=== PATIENT | female | born 1990 | race African-American/Black ===

== ENCOUNTER 2019-06-04 13:00 | Outpatient (RCR) | payer OTHER, SELFPAY ==
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
--- NOTE | 2019-05-21 12:55 | PCPTNOTE ---
Patient called & cancelled scheduled appointment this date due to inability to make appointment.
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
== END 2019-06-04 16:11 | disposition home or self-care (01) ==
LOC: ANHPT 13:00
PROVIDERS: Visit Provider Obstetrics & Gynecology Gynecology
DX: O26.893 Other specified pregnancy related conditions, third trimester (principal); M25.551 Pain in right hip; Z3A.32 32 weeks gestation of pregnancy; Z3A.34 34 weeks gestation of pregnancy
CPT/HCPCS: 97110; 97140; 97161

== ENCOUNTER 2019-06-12 18:42 | Observation (INO) | payer OTHER, SELFPAY ==
[2019-06-12 18:57] VITALS: BMI 32.1
[2019-06-12] MEDS: FLUCONAZOLE 100 MG TABLET PO (20:37)
--- NOTE | 2019-06-17 10:21 | PM.OBTRLD ---
OB - Triage/Final Diagnosis Visit Information Date of evaluation: 06/12/19 Reason for evaluation: other Comments/Additional reasons for admission: ruled out rupture of membranes Yeast infection Final Diagnosis (1) SROM (spontaneous rupture of membranes): Status: Acute
== END 2019-06-12 20:40 | disposition home or self-care (01) ==
PROVIDERS: Admitting Provider Obstetrics & Gynecology; PCP Family Medicine; Visit Provider Obstetrics & Gynecology
DX: O98.813 Other maternal infectious and parasitic diseases complicating pregnancy, third trimester (principal); B37.9 Candidiasis, unspecified; Z3A.36 36 weeks gestation of pregnancy
CPT/HCPCS: 84112; A9270; G0378; G0379

== ENCOUNTER 2019-06-18 04:01 | Inpatient (IN) | payer OTHER, SELFPAY ==
[2019-06-18] VITALS (14 sets, daily range): BP systolic 95–131; BP diastolic 53–70; PULSE 63–90; RESP 18; TEMP 36.2–36.7; O2SAT 100
--- NOTE | 2019-06-18 04:58 | LDADM ---
This patient, Nessa Burr, was admitted to Labor/Delivery/Recovery 109 on 06/18/19 at 04:01. Plans for labor, pain management and were discussed with patient. Patient/family oriented to hospital policies and general routines including ID bracelet, bed and alarms, visiting hours, pain management, procedures, bathroom and other care routines, personal items, smoking policy, room service/diet and guest tray routines, security routines, and visiting hours. Patient/Family are encouraged to report perceived risks to care and to ask questions if they do not understand what they are told or what they should do. See OBIX for further documentation.
[2019-06-18 05:01] LABS: Basophils Percent Auto 0.3 % (0.2-1.2); Eosinophils Absolute Auto 0.1 K/mm3 (0-0.3); Eosinophils Percent Auto 0.7 % (0-4.4); Hematocrit 34.9 % (37.0-47.0); Hemoglobin 10.5 g/dL (12.0-15.0); Immature Granulocyte Absolute 0.16 K/mm3 (0.00-0.031); Immature Granulocyte Percent A 1.3 % (0-0.5); Immature Platelet Fraction Pct 7.5 % (0.9-11.2); Lymphocytes Absolute Auto 2.26 K/mm3 (0.9-3.2); Lymphocytes Percent Auto 18.6 % (18.3-44.2); Mean Corpuscular HGB Conc 30.1 g/dl (32-36); Mean Corpuscular Hemoglobin 21.6 pg (26-34); Mean Corpuscular Volume 71.7 fl (80-100); Monocytes Absolute Auto 1.1 K/mm3 (0.1-0.6); Monocytes Percent Auto 8.6 % (2.6-8.5); Neutrophils Absolute Auto 8.6 K/mm3 (1.3-6.7); Neutrophils Percent Auto 70.5 % (45.5-73.1); Platelet Count Result 209 k/mm3 (150-375); Red Blood Count 4.87 M/mm3 (4.2-5.4); Red Cell Distribution Width 19.6 % (11.5-14.5); White Blood Count 12.2 K/mm3 (4.5-10.0)
[2019-06-18] MEDS: OXYTOCIN 30 UNITS/NS 500 ML 30 UNITS/500 ML BAG 125 UNITS IV CONT (06:04)
--- NOTE | 2019-06-18 06:59 | P.PCNOB_ITS ---
OB - Delivery Note Procedure Delivery date: 06/18/19 Procedure: Intrapartal events: None Delivery augmentation: rupture of membranes Delivery monitor: external FHT and external uterine Route of delivery: Episiotomy description: None Laceration description: Vaginal - 1st Degree Specimen: No Estimated blood loss (mL): 400 Anesthesia type: None Disposition: floor [place] Baby Date of : 06/18/19 Time of : 06:50 Weeks of gestation at delivery: 37 gender: Female Weight (pounds): 7 Weight (ounces): 5 presentation: vertex position: Right Occiput Anterior Placenta delivery description: Spontaneous cord vessel description: 3 Vessels score one minute: 8 score five minutes: 9
--- NOTE | 2019-06-18 06:59 | WPDOBADMIT ---
Obstetrics - Admit Note Admission Note: AROM clear fluid 8 cm . vertex record reviewed. No pertinent additions to the history and/or any subsequent changes in the physical findings that are not consistent with the expected course of the were found. Additions to the history and/or subsequent changes in the physical findings follow. None.
[2019-06-18 07:25] LABS: Rapid Plasma Reagin Non-Reactive (NonReactive)
--- NOTE | 2019-06-18 10:00 | PC.NURSE ---
Consulted with patient, mother reports this to be third child to breastfeed. Reviewed feeding cues, frequencies, duration of feedings, feeding elimination flow sheet, and signs of adequate intake. Demonstrated stimulation techniques to wake infant for feeding. Assisted with infant to breast. Mother was attempting to latch in cradle. Reviewed positioning/alignment in cross cradle, holding breast in U hold and guided asymmetrical latch on. Discussed the rational for each. Infant was able to latch correctly. Infant nursed eagerly, with steady draws and frequent ] swallowing noted. Reviewed signs of a correct latch, effective nursing and suck swallow ratio. Infant was able to maintain latch without discomfort to mother. Nipple care reviewed. Suggested mother hold breast during entire feeding to assist with maintaining deep latch. Instructed mother to call out for RN assistance if she is unable to latch for feeding or she has discomfort with nursing. Instructed feeding should be initiated three hours from start of last feeding or if feeding cues are noted before. Mother voiced understanding of information shared.
--- NOTE | 2019-06-18 10:13 | PC.NURSE ---
Addendum entered by Padmini Gay RN 06/18/19 10:46: Pt. admitted to room 289 at 0940. Original Note: Patient transferred to post room #289 via wheelchair. Support person present. Oriented to unit, room, information board, rooming in, admission packet and security measures. Patient verbalizes understanding.
[2019-06-18] MEDS: MULTIVIT/MIN/PREN/FOL AC/IRON TABLET 1 TAB PO (11:17)
[2019-06-18] MEDS: LANOLIN (LANSINOH) 7.5 GM CREAM 1 APPLIC TOPICAL (11:18)
[2019-06-18] MEDS: IBUPROFEN 600 MG TABLET PO ×2 (11:18→16:26)
[2019-06-18] MEDS: DOCUSATE SODIUM 100 MG CAPSULE PO (16:27)
[2019-06-19 05:48] LABS: Hematocrit 33.6 % (37.0-47.0); Hemoglobin 10.2 g/dL (12.0-15.0)
[2019-06-19] MEDS: MULTIVIT/MIN/PREN/FOL AC/IRON TABLET 1 TAB PO (08:14)
[2019-06-19] MEDS: DOCUSATE SODIUM 100 MG CAPSULE PO (08:14)
[2019-06-19 08:45] VITALS: BP 103/63; PULSE 69; RESP 18; TEMP 37.1; O2SAT 99
--- NOTE | 2019-06-19 08:45 | PC.NURSE ---
Mother called out for assist, reporting infant does not wake eagerly for feeding and has tenderness with feeding. Reviewed infant feeding cues, frequencies, duration of feedings, feeding elimination flow sheet, and signs of adequate intake. Demonstrated stimulation techniques to wake infant for feeding. Observed mother latching in cradle positioning allowing to self attach with shallow latch. Assisted with infant to breast. Reviewed positioning/alignment cross cradle, holding breast in U hold and asymmetrical latch on. Discussed rational for each. Infant was able to latch correctly with first attempt. nursed eagerly, with steady draws and frequent swallowing noted, with long pausing. Reviewed signs of a correct latch, effective nursing and suck swallow ratio. was able to maintain latch without discomfort to mother. Mother reports has not been latching as deeply or feeding as continuous. Nipple care reviewed. Suggested to stimulate to keep infant awake and nursing effectively to assist with maintaining deep latch and to increase intake. Mother states she will continue to supplement after if she feels is not satisfied. Instructed mother to call out for RN assistance if she is unable to latch infant for feeding or she has discomfort with nursing. Instructed feeding should be initiated three hours from start of last feeding or if feeding cues are noted before. Mother voiced understanding of information shared.
--- NOTE | 2019-06-19 11:51 | PM.OBPNVD ---
OB - PN: Subj Subjective Date/time seen: 06/19/19 11:51 Patient comments: no complaints and pain well controlled baby status: doing well OB - PN: Obj Data Labs CBC & Chem 7: 06/19/19 04:43 Labs: Laboratory Results - last 24 hr 06/19/19 04:43 Hgb 10.2 L Hct 33.6 L OB - PN A/P Assessment and Plan (1) SROM (spontaneous rupture of membranes): Status: Acute (2) (normal spontaneous vaginal delivery): Code(s): O80 - Encounter for full-term uncomplicated delivery Status: Acute Assessment and Plan: continue with pp care. Time Spent With Patient Time: Total time spent is greater than 50% in coordination of care (as documented) at patient's floor/unit and/or counseling patient: Exam GI: Other: ff Abdomen image: 1. uterus below umbilicus
--- NOTE | 2019-06-19 11:54 | PM.DS ---
DS: Summary Status at Discharge Functional status at discharge: independent ambulation Time Spent with Patient Time attestation: Total time spent providing and/or coordinating discharge services: DS: Data Data Completed and Pending Labs on day of discharge: Labs from last 24 hours 06/19/19 04:43 Hgb 10.2 L Hct 33.6 L Discharge Plan Discharge Attending physician on discharge: Milton Penn Discharging Clinician: Milton Penn Anticipated Discharge Date/Time: 06/20/19 10:33 Patient Disposition: Home, Self-Care Activity: may shower and pelvic rest Diet: regular Discharge Instructions: Education: Mom and Baby Guide Given to: Mother Follow-Up: Call your delivering provider's office for an appointment to be seen in: 4 Weeks Mom and baby should come to the [facility] for the follow-up appointment. Appointment Date/Time: June 22, 2019 at 8:00 am What to expect at your follow-up visit: Physical Assessment Call [phone] if you are unable to keep your appointment time. BREAST CARE: 1. Wear a snug supportive bra. 2. For engorgement discomfort: Breast Feeding: A. Apply warm moist washcloths B. Express milk as needed to relieve engorgement C. Wear loose clothing Bottle Feeding: A. May apply ice packs 3. For sore nipples: A. Identify correct latch-on B. Apply warm moist washcloths before and after nursing C. Air dry nipples after nursing D. May apply Lansinoh cream to nipples EPISIOTOMY/PERINEAL CARE: 1. Until bleeding stops, use your radha bottle after urinating 2. Change your pad frequently throughout the day 3. You may take sitz baths several times a day (fill your bathtub with warm water and soak for 20 minutes.) Do NOT bathe in the water 4. No tub baths until seen by your physician - You may shower ACTIVITY: 1. Rest as much as possible. 2. Do not exercise or lift anything heavier than your baby (such as laundry or other children.) 3. Avoid stairs or driving as much as possible. 4. Do not put anything into the vagina. No douching, tampons, or sexual activity until seen by physician. NOTIFY PHYSICIAN IF YOU HAVE ANY QUESTIONS OR IF ANY OF THE FOLLOWING SYMPTOMS OCCUR: 1. If your episiotomy becomes red, swollen, or more painful than what you have experienced in the hospital. 2. If your vaginal bleeding becomes foul smelling. 3. If your vaginal bleeding becomes more heavy than a period or if your bleeding changes from pink to bright red. However, you may pass an occasional walnut-sized clot once or twice for the first week . 4. If you experience a sharp, shooting pain in you calves. 5. If you discover a hard, reddened area on your breast or if you experience flu-like symptoms. DIET: 1. Eat regular, well-balanced meals. 2. Drink plenty of fluids daily. If , drink to thirst. Stand Alone Forms: General Discharge Information Follow-up/Referrals: Kiki Whitt MD [Physician] - Discharge Medications: Continued ergocalciferol (vitamin D2) [Vitamin D2] 1,250 mcg (50,000 unit) Capsule 1,250 mcg PO WEEKLY RF: 0 PNV cmb#95-ferrous fumarate-FA [] 28 mg iron- 800 mcg Tablet 1 tablet PO DAILY RF: 0 Discontinued ferrous sulfate [Iron (ferrous sulfate)] 325 mg (65 mg iron) Tablet 325 mg PO DAILY RF: 0 Date of admission: 06/18/19 04:01 Primary Care Provider: Jigna,Enrrique Simental Admitting Provider: Milton Penn Discharge Date/Time: 06/20/19 13:03 Attending physician on admission: Kiki Whitt Condition: Stable
[2019-06-19 20:05] VITALS: BP 108/60; PULSE 70; RESP 16; TEMP 36.8; O2SAT 100
[2019-06-20] MEDS: IBUPROFEN 600 MG TABLET PO ×2 (07:23)
[2019-06-20] MEDS: MULTIVIT/MIN/PREN/FOL AC/IRON TABLET 1 TAB PO (07:23)
[2019-06-20 09:50] VITALS: BP 101/60; PULSE 79; RESP 18; TEMP 36.4
--- NOTE | 2019-06-20 10:32 | P.PNOB_ITS ---
OB - PN: Subj Subjective Date/time seen: 06/20/19 10:32 Patient comments: no complaints and pain well controlled baby status: doing well [place] feeding status: breast and bottle feeding OB - PN: Obj Data Labs CBC & Chem 7: 06/19/19 04:43 OB - PN A/P Plan day: 2 Plan: routine care, discharge home and follow up 6 weeks Comments: Plans DepoProvera Time Spent With Patient Time: Total time spent is greater than 50% in coordination of care (as documented) at patient's floor/unit and/or counseling patient: Exam : Bimanual exam- vagina & uterus: other (Uterus firm, nt @U)
[2019-06-20] MEDS: medroxyPROGESTERone ACETATE IM 150 MG/ML SYR IM (12:41)
[2019-06-22 08:21] VITALS: BP 113/59; PULSE 71; RESP 20; TEMP 36.6; O2SAT 100
== END 2019-06-20 13:03 | disposition home or self-care (01) | DRG 560 ==
LOC: ANHLDR 04:36 → ANHOB2 09:44
PROVIDERS: Admitting Provider Obstetrics & Gynecology; PCP Family Medicine; Visit Provider Obstetrics & Gynecology Gynecology
DX: O99.824 Streptococcus B carrier state complicating childbirth (principal); Z3A.37 37 weeks gestation of pregnancy; Z37.0 Single live birth
CPT/HCPCS: 36415; 85014; 85018; 85025; 85055; 86592; 86850; 86900; 86901; A9270; J1050; J2590; J3010